=== PATIENT | female | born 1955 | race Caucasian/White ===

== ENCOUNTER → 2017-01-13 | Outpatient (CLI) | payer OTHER, BC | LOC: SP 15:21 | PROVIDERS: ATTEND Internal Medicine | DX: M79.604 Pain in right leg (principal); M79.89 Other specified soft tissue disorders | CPT/HCPCS: 93971 ==

== ENCOUNTER → 2018-02-28 | Outpatient (CLI) | payer OTHER, BC ==
--- NOTE | 2018-02-28 11:09 | RADIOLOGY REPORT (SQ) ---
EXAM DESCRIPTION: FINGER LEFT COMPLETED DATE/TIME: 02/28/2018 9:32 am REASON FOR STUDY: OTHER BURSAL CYST, LEFT HAND M71.342 OTHER BURSAL CYST, LEFT HAND COMPARISON: None. NUMBER OF VIEWS: Three views. TECHNIQUE: AP, lateral, and oblique images acquired of the left fifth finger. LIMITATIONS: None. FINDINGS: MINERALIZATION: Normal. BONES: No acute fracture or dislocation. There appears to be periosteal reaction involving the middl e phalanx of the 5th digit with periosteal new bone being identified. SOFT TISSUES: No soft tissue swelling. No foreign body. OTHER: There is subluxation at the level of the PIP joint of the 5th digit. IMPRESSION: No acute fracture dislocation. There appears to be periosteal reaction involving the mi ddle phalanx of the 5th digit with periosteal new bone being identified. Clinical correlation is rec ommended. Other findings as noted above COMMENT: SITE OF TRAUMA/COMPLAINT MARKED/STAMP COMPLETED: No TECHNICAL DOCUMENTATION: JOB ID: [id number] [employer]- All Rights Reserved Reading location - IP/workstation name: [email or web address]
--- NOTE | 2018-03-01 08:13 | RADIOLOGY REPORT (SQ) ---
EXAM DESCRIPTION: MRI LT UPPER JOINT WITHOUT COMPLETED DATE/TIME: 02/28/2018 9:06 am REASON FOR STUDY: OTHER BURSAL CYST, LEFT HAND M71.342 OTHER BURSAL CYST, LEFT HAND COMPARISON: None. TECHNIQUE: Multiplanar imaging to include T1-weighted images, T-2 weighted images, and gradient echo imaging. Orthogonal images orientated to the plane of the left 5th finger. Images saved to PACS. LIMITATIONS: None. FINDINGS: The 1.4 cm long by 0.7 cm transverse by 0.6 cm AP mass is present along the ulnar and palm ar aspect of the 5th finger just lateral to the flexor tendon sheath along the proximal phalanx regio n. This is dark on T1, intermediate/bright on T2 signal. Appears to attach to the 5th PIP joint at the level of the ulnar collateral ligament attachment to the proximal phalanx, best shown on axial T1 series 7 images 13-15. No abnormal 5th finger PIP joint effusion. Flexor tendons are intact. BONES: No generalized marrow placement. No occult fracture. No marrow signal abnormalities along th e 5th finger. In particular, no marrow signal abnormalities along the 5th finger proximal phalanx is present. LIGAMENTS: No evidence for ligamentous tear. TENDONS: Tendons are intact without evidence for tendinopathy. SOFT TISSUES: As above OTHER: No other significant finding. IMPRESSION: Soft tissue mass in the 5th finger palmar and ulnar aspect along the proximal phalanx re gion. This is along the lateral aspect of the flexor tendon sheath. 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 No adjacent marrow signal abnormalities in the proximal phalan x. TECHNICAL DOCUMENTATION: JOB ID: [id number] [employer]- All Rights Reserved Reading location - IP/workstation name: [email or web address]
== END ==
LOC: RAD 07:41
PROVIDERS: ATTEND Orthopaedic Surgery
DX: S69.92XA Unspecified injury of left wrist, hand and finger(s), initial encounter (principal); M79.645 Pain in left finger(s); X58.XXXA Exposure to other specified factors, initial encounter; Y93.9 Activity, unspecified; Y92.9 Unspecified place or not applicable

== ENCOUNTER → 2018-04-10 | Outpatient (CLI) | payer OTHER, BC ==
[2018-04-10 10:24] LABS: ABSOLUTE EOSINOPHILS # (AUTO) 0.2 10^3/uL (0.0-0.6); ABSOLUTE LYMPHOCYTES (AUTO) 1.8 10^3/uL (0.5-4.7); ABSOLUTE MONOCYTES (AUTO) 0.5 10^3/uL (0.1-1.4); ABSOLUTE NEUT (AUTO) 2.4 10^3/uL (1.7-8.2); BASOPHILS % (AUTO) 0.7 % (0-2); EOSINOPHILS % (AUTO) 3.3 % (0-6); HEMATOCRIT 37.5 % (36.0-47.0); HEMOGLOBIN 12.8 g/dL (12.0-15.5); LYMPHOCYTES % (AUTO) 36.9 % (13-45); MEAN CORPUSCULAR HEMOGLOBIN 31.8 pg (27.0-33.4); MEAN CORPUSCULAR HGB CONC 34.1 g/dL (32.0-36.0); MEAN CORPUSCULAR VOLUME 94 fl (80-97); MONOCYTES % (AUTO) 9.5 % (3-13); PLATELET COUNT 226 10^3/uL (150-450); RED BLOOD COUNT 4.02 10^6/uL (3.72-5.28); RED CELL DISTRIBUTION WIDTH 13.3 % (11.5-14.0); SEGMENTED NEUTROPHILS % (AUTO) 49.6 % (42-78); TOTAL CELLS COUNTED % (AUTO) 100 %; WHITE BLOOD COUNT 4.8 10^3/uL (4.0-10.5)
[2018-04-10 10:46] LABS: URIC ACID 5.3 mg/dL (2.5-7.5)
[2018-04-10 10:50] LABS: C-REACTIVE PROTEIN < 5.0 mg/L (<10.0)
[2018-04-10 11:30] LABS: ERYTHROCYTE SEDIMENTATION RATE 8 mm/hr (0-30)
[2018-04-12 07:43] LABS: CYCLIC CITRUL PEPTIDE IGG/A AB 10 units (0-19)
== END ==
LOC: OD 09:26
PROVIDERS: ATTEND Orthopaedic Surgery Hand Surgery
DX: M65.9 Synovitis and tenosynovitis, unspecified (principal)
CPT/HCPCS: 36415; 84443; 84550; 85025; 85652; 86038; 86140; 86200; 86430

== ENCOUNTER → 2018-08-13 | Outpatient (CLI) | payer OTHER, BC ==
[2018-08-13 15:49] LABS: FREE T4 (FREE THYROXINE) 1.45 ng/dL (0.78-2.19)
[2018-08-13 16:03] LABS: THYROID STIMULATING HORMONE 1.99 uIU/mL (0.47-4.68)
== END ==
LOC: OD 14:19
PROVIDERS: ATTEND Internal Medicine
DX: E03.9 Hypothyroidism, unspecified (principal)
CPT/HCPCS: 36415; 84439; 84443